=== PATIENT | male | born 1955 | race Caucasian/White ===

== ENCOUNTER 2018-10-06 09:37 | Emergency (ER) | payer BC, SELFPAY ==
[2018-10-06 09:39] VITALS: BP 145/77; PULSE 66; RESP 20; TEMP 36.6; O2SAT 99; BMI 30.8
--- NOTE | 2018-10-06 09:58 | CT_ITS ---
STUDY: CT ABDOMEN AND PELVIS WITHOUT CONTRAST REASON FOR EXAM: Male, 63 years old. Right flank pain. RADIATION DOSAGE (If Supplied By Facility): CTDIvol = ( 14.78 ) mGy, DLP = ( 742.43 ) mGycm TECHNIQUE: Transaxial images were obtained from the dome of the diaphragm to the symphysis pubis without oral contrast, and without intravenous contrast. Sagittal and coronal images were reconstructed. Individualized dose optimization techniques were used for this CT. COMPARISON: None. FINDINGS: The visualized lung bases are unremarkable. The visualized portions of the heart are within normal limits. Normal liver. Normal gallbladder and extrahepatic biliary system. Normal spleen. Normal pancreas. Normal bilateral adrenal glands. There is 0.5 cm stone in the mid aspect of the right kidney. There is mild right hydronephrosis. There is 0.5 cm right ureteral stone at the L4 level. There is 0.5 and 0.27 mm stones at the lower pole of the left kidney. Normal visualized stomach. Normal small intestine. There are multiple colonic diverticula consistent with diverticulosis. The appendix is visualized and appears normal. There is diffuse atherosclerotic calcification of the abdominal aorta, without a demonstrated aneurysm. Normal inferior vena cava. Normal retroperitoneum. Normal urinary bladder. There is no free fluid in the abdomen or pelvis. Normal abdominal wall. There are diffuse degenerative changes of the visualized lumbar spine. CT/Abdomen/Pelvis without Cont IMPRESSION: Bilateral renal stones. Right ureteral stone with hydronephrosis. Colonic diverticulosis. No obstruction or abscess. Electronically Signed: Flaco Stone MD at 10:41 EST , Service support ,
--- NOTE | 2018-10-06 09:59 | ED.VISSUMM ---
- ER Visit Summary Date of Service: 10/06/18 Chief Complaint: Flank pain History of Present Illness: The patient is a 63 M who presents with flank pain for the past 3 days. It is intermittent, it is constant since he woke up this morning. He does have some radiation into his abdomen. No hematuria. No radiation to his testicle. Pain is moderate to severe, sharp and stabbing. Feels like prior kidney stones. Physical Examination: Patient appears in some distress. Moist mucous membranes, no obvious facial deformity No C-spine tenderness supple neck. Regular rate and rhythm without any obvious murmurs Clear lungs bilaterally speaking in full sentences without any obvious respiratory distress Abdomen soft slight right sided abdominal pain without any guarding or rebound. He does have right CVA tenderness although it is vaguely reproducible. Moves all extremities without any difficulty or pain. Skin does not show any obvious rashes or lesions, no trauma. Alert oriented ?3 with no gross focal deficit Emergency Department Course and Treatment: She was found to have multiple stones within bilateral kidneys, there is 1 stone that is 5 mm that is obstructive with some hydronephrosis. Urinalysis does not show a urinary tract infection his blood work is unremarkable other than some mild renal insufficiency. Because of the mild renal insufficiency I will not give him NSAIDs. [place], [place] go back. He has a urologist where he will follow-up. I told him if he gets fever or chills he worsens he needs to return to any emergency department. He has had multiple kidney stones and understands this. I will discharge him with opiate analgesics, he has Flomax at home. Disposition: Discharged stable condition Impression: Obstructing kidney stone This note was generated with [employer] dictation software. It may contain incorrect words, spelling, and punctuation that were not noted in review of the chart prior to signing ED Disposition - Plan for ED Patient: Disposition: Home or Assisted Living Chief Complaint: Flank Pain Instructions: ED Stone Renal W Colic Prescriptions: Oxycodone HCl/Acetaminophen [Percocet 5/325] 1 tab PO Q6H PRN PRN 3 Days #12 tab PRN Reason: Pain
[2018-10-06 10:05] VITALS: BP 133/67; PULSE 58; RESP 12; O2SAT 97
[2018-10-06 10:09] LABS: Absolute Lymphocyte Count 1.95 X10^3/ul (0.83-4.51); Absolute Neutrophil Count 5.1 X10^3/uL (2.0-7.7); Basophil# 0.02 X10^3/uL; Basophil% 0.3 % (0-1); Eosinophil# 0.13 X10^3/uL; Eosinophils% 1.7 % (0-5); Hemoglobin 13.7 g/dl (13.0-16.5); Lymphocyte # 1.95 X10^3/ul (4.0); Mean Corp Hgb Conc 32.6 g/gl (32-36); Mean Corpuscular Hgb 29.6 pg (27.0-32.0); Mean Corpuscular Volume 90.7 fL (80-94); Mean Platelet Vol. 10.1 fl (6.2-12.0); Monocyte# 0.62 X10^3/uL; Monocyte% 7.9 % (0-10); Neutrophil # 5.07 X10^3/uL (2.7-7.7); Neutrophil % 64.8 % (47-70); Platelet Count 221 K/mm3 (150-450); RBC Distribution Width CV 13.6 % (11.6-14.6); RBC Distribution Width SD 44.4 fl (35.1-43.9); Red Blood Count 4.63 M/mm3 (4.6-6.2); White Blood Count 7.8 K/mm3 (4.4-11.0)
[2018-10-06 10:10] LABS: POSITIVE COUNT NO; POSITIVE DIFFERENTIAL NO; POSITIVE MORPHOLOGY NO
[2018-10-06] MEDS: Ondansetron 4 MG/2 ML Vial IV ×2 (10:10→12:34)
[2018-10-06] MEDS: Morphine 4 MG/ML Syringe IV ×2 (10:10→12:35)
[2018-10-06 10:16] LABS: Anion Gap 8 (5-15); BUN 24 mg/dL (7-18); BUN/Creat Ratio 14.5 RATIO (10-20); Chloride 107 mmol/L (98-107); Creatinine, Serum 1.66 mg/dL (0.70-1.30); EST Glomerular Filtration Rate 45 mL/min (>60); Est Glom Filt Rate - Afr Amer 54 mL/min (>60); Estimated Creatinine Clearance 46.42 ml/min; Glucose 129 mg/dL (74-106); Sodium Level 143 mmol/L (136-145)
[2018-10-06 11:28] VITALS: BP 133/72; PULSE 65; RESP 17; O2SAT 99
[2018-10-06 12:01] VITALS: BP 130/71; PULSE 60; RESP 16
[2018-10-06 12:09] LABS: Bacteria 0 SEEN /hpf (None Seen); Mucous, Urine 0 SEEN /hpf (<or=2+); White Blood Cells 0 SEEN /hpf (0-5)
[2018-10-06 12:12] LABS: Color, Urine Yellow (Yellow); Glucose, Dipstick Normal (Normal); Ketone-Dipstick Negative (Negative); Leukocyte Esterase-Dipstick Negative /ul (Negative); Nitrite-Dipstick Negative (Negative); Occult Blood-Urine 25 /ul (Negative); Protein-Dipstick Negative (Negative); Urine Bilirubin Dipstick Negative (Negative); Urine Clarity Clear (Clear); Urine Urobilinogen Normal (Normal)
[2018-10-06 12:18] LABS: Red Blood Cells-Urine 0-5 SEEN /hpf (0-5); Squamous Epithelial Cells - UA 0-5 SEEN /hpf (0-5)
[2018-10-06 13:06] VITALS: BP 107/55; PULSE 61; RESP 18; O2SAT 99
== END 2018-10-06 13:19 | disposition home or self-care (01) ==
PROVIDERS: Emergency Provider Emergency Medicine
DX: N13.2 Hydronephrosis with renal and ureteral calculous obstruction (principal); Z87.442 Personal history of urinary calculi; I10 Essential (primary) hypertension; E78.00 Pure hypercholesterolemia, unspecified; K57.30 Diverticulosis of large intestine without perforation or abscess without bleeding
CPT/HCPCS: 74176; 80048; 81001; 85025; 96374; 96375; 96376; 99283; A4216; J2405